=== PATIENT | male | born 1970 | race Caucasian/White ===

== ENCOUNTER 2022-06-06 20:56 | Emergency (ER) | payer OTHER, SELFPAY ==
[2022-06-06 20:57] VITALS: BP 155/78; PULSE 60; RESP 17; TEMP 35.8; O2SAT 100; BMI 31.6
--- NOTE | 2022-06-06 21:05 | RAD_ITS ---
STUDY: X-RAY - LEFT SHOULDER REASON FOR EXAM: Male, 51 years old. pain TECHNIQUE: 4 view(s) of the shoulder. COMPARISON: None. FINDINGS: Normal glenohumeral articulation. There is degenerative arthrosis of the acromioclavicular joint without inferior osseous spur formation. Normal acromion. Normal humeral head and visualized proximal humerus. The soft tissue structures are unremarkable. Normal visualized pulmonary apex. RAD/Shoulder min 2 Views IMPRESSION: No acute findings Electronically Signed: Jermaine Nazario DO at 21:29 EDT ,
--- NOTE | 2022-06-06 21:07 | EX.ED.UPPERE ---
HPI History of Present Illness Chief Complaint: Upper Extremity Injury Informant: patient Narrative Narrative: 51-year-old male presenting to the emergency department for left shoulder pain. He notes no history of trauma. He states that he has had this type of pain before but it is gone away but this episode is now been going on for 4 days. He notes a very particular spot in the anterior aspect of his shoulder that is tender and feels swollen to him and when he moves his arm that is where it hurts. PFSH PFSH Medical History no medical history Home Medications hydrocodone-acetaminophen 5-325mg 5mg-325mg 1 - 2 tab PO Q4H PRN PRN Pain ##20 07/23/15 [Rx Last Taken Unknown] diclofenac sodium 1 % topical gel (Arthritis Pain (diclofenac)) 2 g topical .qid 10 days #100 grams 06/06/22 [Rx Last Taken Unknown] hydrocodone-acetaminophen 5-325mg 5mg-325mg 1 tab PO Q6H PRN PRN Pain 3 days #10 TABLETS 06/06/22 [Rx Last Taken Unknown] Allergy/AdvReac Type Severity Reaction Status Date / Time No Known Allergies Allergy Verified 06/06/22 20:59 Social History Smoking Status: Never smoker ROS ROS ED Constitutional Constitutional ED: Denies chills or weight loss Eyes Eyes: Denies change in vision or diplopia ENT ENT ED: Denies ear pain, rhinorrhea or sore throat Cardiovascular Cardiovascular: Denies chest pain, orthopnea, palpitations or racing heartbeat Respiratory/Chest Respiratory/Chest: Denies cough, dyspnea or orthopnea Gastrointestinal Gastrointestinal: Denies abdominal pain, diarrhea, nausea or vomiting Genitourinary Genitourinary ED: Denies dysuria, hematuria or urinary frequency Musculoskeletal Musculoskeletal: Reports other Details: Left shoulder pain ; Denies arthralgias or myalgias Integumentary Denies abscess or rash Neurologic Neurologic: Denies headache(s) or weakness Psychiatric Psychiatric: Denies anxiety, depression, suicidal ideation or suicidal thoughts Endocrine Endocrinology: Denies polydipsia, polyphagia or polyuria Allergic/Immunologic Allergic/Immunologic ED: Denies mouth swelling, tongue swelling or urticaria EXAM Physical Exam Const Vital Signs: 06/06/22 20:57 Temperature 96.4 F L Temperature Source Temporal Pulse Rate 60 Respiratory Rate 17 Blood Pressure 155/78 H Blood Pressure Mean 103 Pulse Ox 100 Oxygen Delivery Method Room Air MDM MDM MDM Narrative Medical decision making narrative: Patient has focal tenderness over the coracoid process on the left shoulder. My interpretation of the plain films is no acute fracture. There is some evidence of some calcific tendinitis. Clinically I think this is a biceps tendinitis and we will treat with anti-inflammatories and Voltaren gel have him follow-up with orthopedics and discuss further treatment. Discharge Plan Triage Chief Complaint: Upper Extremity Injury ED Provider: Jordon Kaplan Dx/Rx/DC Orders Clinical Impression: Biceps tendinitis of left shoulder, Calcific tendinitis Instructions: Biceps Tendonitis Proximal Prescriptions: New diclofenac sodium [Arthritis Pain (diclofenac)] 1 % gel 2 g topical .qid 10 Days Qty: 100 0RF hydrocodone-acetaminophen [hydrocodone-acetaminophen] 5-325 mg tablet 1 tab PO Q6H PRN PRN (Reason: Pain) 3 Days Qty: 10 0RF No Action hydrocodone-acetaminophen 1 TABLET tablet 1 - 2 tab PO Q4H PRN PRN (Reason: Pain) Qty: 20 0RF Primary Care Provider: Care Physician,No Primary Referrals: Kaushik Cheng, [Med Staff - Active Staff] - As soon as possible Care Physician,No Primary [Primary Care Provider] - Activity Restrictions/Additional Instructions: Please begin taking Motrin 800 mg every 8 hours with food. Disposition Disposition: Home, Self Care
[2022-06-06 21:46] VITALS: PULSE 71; RESP 15; O2SAT 98
== END 2022-06-06 21:47 | disposition home or self-care (01) ==
LOC: ED 21:34
PROVIDERS: Emergency Provider Emergency Medicine; Visit Provider Emergency Medicine
DX: M75.22 Bicipital tendinitis, left shoulder (principal); M75.32 Calcific tendinitis of left shoulder
CPT/HCPCS: 73030; 99282

== ENCOUNTER 2024-10-07 09:16 | Emergency (ER) | payer MEDICAID, SELFPAY ==
[2024-10-07 09:17] VITALS: BP 128/73; PULSE 62; RESP 18; TEMP 37; O2SAT 98; BMI 34.0
--- NOTE | 2024-10-07 10:39 | RAD_ITS ---
EXAM: XR LEFT FINGERS, 2 OR MORE VIEWS CLINICAL INDICATION: TRAUMA TO l-THUMB pain. TECHNIQUE: Frontal, lateral and oblique views of the fingers of the left hand. COMPARISON: No relevant prior studies available. FINDINGS: BONES/JOINTS: First digit metacarpal phalangeal and interphalangeal joint arthrosis. No definite acute fracture. No subluxation. Normal alignment. SOFT TISSUES: Soft tissue swelling. Apparent laceration or other soft tissue injury dorsal to the interphalangeal joint of the first digit. Punctate foci of radiodensity within the soft tissues near the head of the first proximal phalanx may be indicative of retained foreign bodies/debris within the wound rather than punctate fracture fragments. RAD/Finger(s) Min 2 Views IMPRESSION: 1. Apparent laceration or other soft tissue injury dorsal to the interphalangeal joint of the first digit. 2. Punctate foci of radiodensity within the soft tissues near the head of the first proximal phalanx may be indicative of retained foreign bodies/debris within the wound rather than punctate fracture fragments. 3. First digit metacarpal phalangeal and interphalangeal joint arthrosis. Electronically Signed: Eder Solis DO at 11:07 EST ,
--- NOTE | 2024-10-07 10:41 | EX.ED.UPPERE ---
HPI History of Present Illness HPI Narrative: Healthy 54-year-old male was using a inner diameter grinder tool to cut yesterday and accidentally ground the dorsal aspect of left thumb. This occurred yesterday around 5:30 PM. So we are 17 hours after the incident. Tetanus is not up-to-date. He denies any other injuries. Chief Complaint: Laceration Informant: patient and spouse/S.O. Occured/Mechanism Mechanism/Context: Yes injury Onset/Context/Timing Onset: Yesterday Context: Sudden Onset Timing: Continuous Quality of Pain: Dull and Aching Current Severity: Mild Maximum Severity: Mild Associated Symptoms Associated Symptoms: Negative for Parasthesia, Weakness or Loss of Funtion Narrative Narrative: 54-year old male no seen past medical history [id number] inner diameter grinder tool accident last night at home on the dorsum of his left thumb at the interphalangeal joint. Occurred about 17 hours ago. Tetanus Immunization: Unknown Prior similar symptoms: No Recent Illness/Hospitalization: No PFSH PFSH Medical History no medical history Home Medications ?Medication ?Instructions ?Recorded ?Last Taken ?Type hydrocodone-acetaminophen 5-325mg 1 - 2 tab PO Q4H PRN PRN Pain ##20 07/23/15 Unknown Rx 5mg-325mg diclofenac sodium 1 % topical gel 2 g topical .qid 10 days #100 grams 06/06/22 Unknown Rx (Arthritis Pain (diclofenac)) hydrocodone-acetaminophen 5-325mg 1 tab PO Q6H PRN PRN Pain 3 days 06/06/22 Unknown Rx 5mg-325mg #10 TABLETS cephalexin 500 mg capsule 500 mg PO Q8H 7 days #21 caps 10/07/24 Unknown Rx Allergy/AdvReac Type Severity Reaction Status Date / Time No Known Allergies Allergy Verified 10/07/24 09:17 Social History Smoking Status: Never smoker ROS ROS ED ROS Narrative Denies recent illness. Constitutional Constitutional ED: Denies chills or fever(s) Eyes Eyes: Denies blurry vision ENT ENT ED: Denies ear pain Cardiovascular Cardiovascular: Denies chest pain Respiratory/Chest Respiratory/Chest: Denies cough or dyspnea Gastrointestinal Gastrointestinal: Denies abdominal pain Genitourinary Genitourinary ED: Denies dysuria or hematuria Musculoskeletal Musculoskeletal: Denies back pain, myalgias or neck pain Integumentary Denies abscess, Abrasions or rash Neurologic Neurologic: Denies headache(s) Psychiatric Psychiatric: Denies anxiety or depression Endocrine Endocrinology: Denies cold intolerance, heat intolerance, polydipsia, polyphagia or polyuria Hematologic/Lymphatic Hematologic/Lymphatic: Denies easy bleeding, easy bruising or lymphadenopathy Allergic/Immunologic Allergic/Immunologic ED: Denies mouth swelling, tongue swelling or urticaria EXAM Physical Exam Narrative Exam Narrative: 54-year-old male no acute distress. Vital signs stable afebrile. at bedside. H EENT exam unremarkable. Lungs clear. Heart regular rhythm rate about 60 no murmur. Abdomen soft nontender. Moving all 4 extremities. Left thumb has a laceration of the dorsum of the left thumb over the interphalangeal joint. It is approximately 1-1/2 inches in length. It is horizontal. It is through the skin and into the subcu tissue. Thumb is mildly swollen. Minimally red. He has full extension and is able to flex the thumb. Normal touch sensation and cap refill. No obvious bony deformity. Mildly tender. Otherwise exam unremarkable. Const Vital Signs: 10/07/24 09:17 Temperature 98.6 F Temperature Source Oral Pulse Rate 62 Respiratory Rate 18 Blood Pressure 128/73 H Blood Pressure Mean 91 Pulse Ox 98 Oxygen Delivery Method Room Air Positive well nourished and well developed; Negative for cachectic, contractures or unkempt General Appearance ED: well developed and NAD; Negative for unkempt, cachectic, contractures, cyanotic or diaphoretic Nutritional Appearance: Negative for cachectic HEENT Reports moist mucous membranes normocephalic and atraumatic; Negative for trauma or tenderness Eyes PERRL and EOMs intact bilaterally Neck full ROM and supple Chest Wall inspection of chest normal and palpation of chest normal Resp normal respiratory effort and clear to auscultation bilaterally Auscultation: Negative for rales, rhonchi, wheezes or diminished lung sounds Cardio regular rate, regular rhythm, S1 normal heart sound, S2 normal heart sound and no murmurs Rate: Negative for bradycardia or tachycardic Rhythm: Negative for abnormal rhythm GI non-tender, non-distended and no masses Palpation: soft; Negative for tender, guarding or rebound tenderness present Back/Spine no CVA tenderness General Back: Negative for CVA tenderness Cervical Spine: Negative for cervical spine tenderness Thoracic Spine / Upper Back: Negative for thoracic spinal tenderness Lumbar Spine / Lower Back: Negative for lumbar spinal tenderness Extremity full ROM; Negative for normal to inspection Extremity Narrative: Left thumb. Laceration over the dorsum. Laceration is about 17 hours old. No active bleeding. Lacerations 1-2 inches in length. There is edema. Minimal redness. He has full flexion extension. Normal touch sensation and cap refill. No bony deformity. No lymphangitic streaking. No pus or fluctuance. General Extremety ED: Yes edema General Extremity: edema Neuro oriented x3, CN's II-XII intact bilaterally, moves all extremities, no focal motor deficits and no sensory deficits noted Sensorium / Orientation: alert, oriented to person, oriented to place and oriented to time Motor Exam: strength 5/5 throughout Psych mental status grossly normal Appearance: Negative for unkempt Attitude: No agitated Mood & Affect: Negative for depressed, anxious or tearful Skin General Skin Exam: Negative for petechiae Lesions: no lesions Rashes: no rashes Trauma: laceration; Negative for no lacerations or abrasions MDM MDM MDM Narrative Medical decision making narrative: Left thumb laceration delayed presentation. I do not think this should be sewn down due to risk of infection. It will be cleaned and dressed. Tetanus will be updated. I am obtaining an x-ray of his thumb. He will be started on an antibiotic because there may be early signs of infection with mild swelling and redness. Repeat exam at 11:10 AM no change. Full flexion full extension. Swollen mildly red adequate early potentially infected. Given Keflex here. Will be placed on Keflex 3 times daily. Ice and elevate. Clean daily. Watch for any signs of worsening infection and return. Patient understands that due to the delayed presentation possibly early infection we are choosing not to suture repair of this at this time. History & Record Review Discussion w/independent historian: Patient Discharge Plan Triage Chief Complaint: Laceration ED Provider: Josiah Vasquez Dx/Rx/DC Orders Clinical Impression: Laceration of thumb Instructions: ED Laceration Extremity Prescriptions: New cephalexin 500 mg capsule 500 mg PO Q8H 7 Days Qty: 21 0RF No Action hydrocodone-acetaminophen 1 TABLET tablet 1 - 2 tab PO Q4H PRN PRN (Reason: Pain) Qty: 20 0RF diclofenac sodium [Arthritis Pain (diclofenac)] 1 % gel 2 g topical .qid 10 Days Qty: 100 0RF hydrocodone-acetaminophen [hydrocodone-acetaminophen] 5-325 mg tablet 1 tab PO Q6H PRN PRN (Reason: Pain) 3 Days Qty: 10 0RF Primary Care Provider: Care Physician,No Primary Referrals: Care Physician,No Primary [Primary Care Provider] - Activity Restrictions/Additional Instructions: Clean daily with peroxide and water. Watch for worsening signs of infection such as redness, swelling, streaks, fever pus. If seen return. Tylenol and Motrin for pain and swelling. Ice and elevate. Antibiotic 3 times a day till gone. Tetanus updated for the next 10 years. Print Language: Ecuadorean Disposition Disposition: Home, Self Care
[2024-10-07] MEDS: Cephalexin 250 MG Capsule 500 MG PO (10:51)
[2024-10-07] MEDS: Diphth,Pertuss(Acell),Tet Vac 0.5 ML Vial IM (10:52)
== END 2024-10-07 11:24 | disposition home or self-care (01) ==
LOC: ED 11:12
PROVIDERS: Emergency Provider Emergency Medicine; Visit Provider Emergency Medicine
DX: S61.012A Laceration without foreign body of left thumb without damage to nail, initial encounter (principal); W31.89XA Contact with other specified machinery, initial encounter; Z23 Encounter for immunization
CPT/HCPCS: 73140; 90471; 90715; 99283